=== PATIENT | female | born 1945 | race Caucasian/White ===

== ENCOUNTER 2020-09-07 05:52 | Day surgery (SDC) | payer MEDICARE, BC ==
[2020-09-07] MEDS ORDERED: Dextrose 5%-Lactated Ringers 1,000 ML IV SCH (06:45)
[2020-09-07] MEDS ORDERED: Propofol 200 MG/20 ML SDV ONE (06:58)
[2020-09-07] MEDS ORDERED: fentaNYL 100 MCG/2 ML SDV ONE (06:58)
[2020-09-07] MEDS ORDERED: Midazolam 1 MG/ML 2 ML SDV ONE (06:58)
[2020-09-07 08:18] VITALS: BP 116/81; PULSE 63
--- NOTE | 2020-09-25 11:08 | OR ---
DATE OF PROCEDURE: 09/07/2020 SURGEON: Carlo Nicholson MD PREOPERATIVE DIAGNOSIS: History of colon polyps. POSTOPERATIVE DIAGNOSIS: Normal colonoscopic examination. OPERATIVE PROCEDURE: Flexible colonoscopy. ANESTHESIA: IV sedation. INDICATION FOR PROCEDURE: A 74-year-old presenting for a followup colonoscopy. She does have history of previous colon polyps. Plan is to proceed with a colonoscopy with biopsies and a polypectomy as indicated. Potential risks including bleeding and perforation were discussed, and the patient wishes to proceed. DETAILS OF PROCEDURE: The patient was taken to the operating room and placed in a left lateral decubitus position. IV sedation was administered, after which the initial digital rectal exam was performed and was unremarkable. Colonoscope was then passed into the rectum with retroflexion revealing uncomplicated hemorrhoidal columns. Scope was eventually passed to the level of the cecum. Prep was good with only a small amount of liquid stool being present. To that level, no pathology was identified, specifically no areas of diverticular disease or colitis, and no polyps or other signs of neoplasia. The scope was then withdrawn, the above findings reconfirmed, and the procedure then concluded. Recommendation would be to repeat the patient's colonoscopy in 5 years if her health status remained satisfactory at that time. Carlo Nicholson MD /[id number]
--- NOTE | 2020-09-26 17:18 | OR ---
DATE OF PROCEDURE: 09/07/2020 SURGEON: Carlo Nicholson MD PREOPERATIVE DIAGNOSIS: History of colon polyps. POSTOPERATIVE DIAGNOSIS: Normal colonoscopic examination with no recurrent colon polyps. OPERATIVE PROCEDURE: Flexible colonoscopy. ANESTHESIA: IV sedation. INDICATIONS FOR PROCEDURE: A 74-year-old presenting for a followup colonoscopy. She has history of colon polyps personally. The plan is to proceed with colonoscopy with biopsies and/or polypectomy. Potential risks including bleeding and perforation were discussed, and the patient wishes to proceed. DETAILS OF PROCEDURE: The patient was taken to the operating room and placed in a left lateral decubitus position. IV sedation was administered, after which the initial digital rectal exam was performed, it was unremarkable. Colonoscope was then passed into the rectum with retroflexion revealing uncomplicated hemorrhoidal columns. Scope was then advanced up to the level of the cecum. To that level, no abnormalities were noted, specifically there were no diverticula, no areas of colitis, and no polyps or other signs of recurrent neoplasia. The prep was good with only small amount of liquid stool present. The scope was then withdrawn. The above findings reconfirmed, and the procedure concluded. The patient was taken to the recovery room in satisfactory condition. Given the personal history of colon polyps, recommendation would be to repeat the colonoscopy in 5 years. Carlo Nicholson MD /[id number]
== END 2020-09-07 08:30 | disposition home or self-care (01) ==
LOC: JP.SDS 05:52
PROVIDERS: ATTEND Surgery
DX: Z12.11 Encounter for screening for malignant neoplasm of colon (principal); K64.9 Unspecified hemorrhoids; E78.00 Pure hypercholesterolemia, unspecified; Z86.010 Personal history of colon polyps
CPT/HCPCS: G0105; J2250; J2704; J3010; J7121

== ENCOUNTER 2021-05-31 07:49 | Day surgery (SDC) | payer MEDICARE, BC ==
[~2021-05-31 07:49] MED LIST: Sodium Chloride 0.9% 10 ML Syringe FLUSH PRN
[2021-05-31 09:24] VITALS: BP 132/89; PULSE 59
--- NOTE | 2021-05-31 11:05 | OR ---
DATE OF PROCEDURE: 05/31/2021 SURGEON: Nerissa Rodgers MD POSTOPERATIVE CARE: Postoperative care will be provided mainly at the [address] [place] [address] [facility] in conjunction with [facility] / [facility]. PREOPERATIVE DIAGNOSIS: Cataract, right eye. POSTOPERATIVE DIAGNOSIS: Cataract, right eye. PROCEDURE: Phacoemulsification with intraocular lens placement, right eye. ANESTHESIA: Topical and intracameral. ESTIMATED BLOOD LOSS: Minimal. COMPLICATIONS: None. PATHOLOGY SPECIMENS: None. SURGICAL FINDINGS: None. INDICATION FOR PROCEDURE: The patient is a 75-year-old female with history of a visually significant cataract in the right eye, which interfered with activities of daily living. This consisted of a nuclear sclerosis cataract. Following careful discussion of the risks, benefits and alternatives to cataract extraction with intraocular lens placement including blindness and , the patient elected to proceed, and informed, written consent was obtained prior to the procedure. DESCRIPTION OF THE PROCEDURE: The patient was previously identified, and a kassandra placed above the right eye. All sources, including the patient, indicated that the right eye was the correct eye. The patient was subsequently taken to the operating room where standard monitors were applied. The patient was then prepped and draped in the usual sterile fashion for ophthalmic surgery. Attention was first directed at the 12 o'clock position where a paracentesis port was fashioned. Shugar solution followed by Viscoat was instilled into the eye. Attention was then directed to the 8:30 position where a triplanar incision was made in a near-clear manner using a keratome. A continuous capsulorrhexis was then made using a combination of the cystotome and Utrata forceps. Hydrodissection was achieved using a balanced salt solution, and the lens rotated nicely. Phacoemulsification was then done using a modified [id number] technique without complication. Phaco time was 10.11 CDE. The remaining cortex was removed using the irrigation/aspiration handpiece. Provisc was then instilled into the eye. A Technis lens, model DIB00, at 18.0 diopters was then placed in the capsular bag using an [place] injector. The remaining viscoelastic was removed using the irrigation/aspiration forceps. All wounds were then checked and found to be watertight. The lid speculum and drapes were removed. Maxitrol ointment was placed in the patient's right eye, and the eye was shielded. The patient tolerated the procedure well. The patient was instructed to follow up tomorrow. All needle and sponge counts were correct at the end of the procedure. There were no surgical findings. Nerissa Rodgers MD /[id number]
== END 2021-05-31 09:49 | disposition home or self-care (01) ==
LOC: JP.SDS 07:49
PROVIDERS: ATTEND Ophthalmology
DX: H25.11 Age-related nuclear cataract, right eye (principal); Z87.891 Personal history of nicotine dependence
CPT/HCPCS: V2632

== ENCOUNTER 2021-06-28 08:25 | Day surgery (SDC) | payer MEDICARE, BC ==
[2021-06-28] MEDS ORDERED: Sodium Chloride 0.9% 10 ML Syringe FLUSH PRN (08:45)
[2021-06-28 10:09] VITALS: BP 122/79; PULSE 56
== END 2021-06-28 10:09 | disposition home or self-care (01) ==
LOC: JP.SDS 08:25
PROVIDERS: ATTEND Ophthalmology
DX: H25.12 Age-related nuclear cataract, left eye (principal)
CPT/HCPCS: 66984; V2632